=== PATIENT | female | born 1975 | race African-American/Black ===

== ENCOUNTER 2019-11-09 13:15 | Emergency (ER) | payer MEDICAID ==
[~2019-11-09] VITALS: Ht 167.6 cm; Wt 100.0 kg
[2019-11-09] MEDS ORDERED: ACETAMINOPHEN 500 MG TABLET PO ONE (15:15)
[2019-11-09 16:46] VITALS: BP 121/73
== END 2019-11-09 17:03 | disposition home or self-care (01) ==
LOC: EMS 13:18
DX: M79.671 Pain in right foot (principal); M79.672 Pain in left foot; F41.9 Anxiety disorder, unspecified; F17.210 Nicotine dependence, cigarettes, uncomplicated; F12.90 Cannabis use, unspecified, uncomplicated
CPT/HCPCS: 99406

== ENCOUNTER 2022-01-26 21:26 | Emergency (ER) | payer MEDICAID ==
[~2022-01-26] VITALS: Ht 167.6 cm; Wt 96.0 kg
[2022-01-26 22:57] VITALS: BP 107/70
[2022-01-26 23:39] LABS: BASOPHILS % (AUTO) 0.9 % (0.0-2.0); EOSINOPHILS % (AUTO) 1.5 % (1.0-6.0); HEMATOCRIT 41.5 % (36-46); HEMOGLOBIN 13.3 g/dL (12.0-16.0); LYMPHOCYTES # (AUTO) 2.5 K/uL (1.0-4.8); LYMPHOCYTES % (AUTO) 37.8 % (22.0-44.0); MEAN CORPUSCULAR HEMOGLOBIN 28.5 pg (26.0-34.0); MEAN CORPUSCULAR HGB CONC 32.1 G/dL (31.0-37.0); MEAN CORPUSCULAR VOLUME 89 fL (80-100); MONOCYTES # (AUTO) 0.5 K/uL (0.1-1.0); MONOCYTES % (AUTO) 8.2 % (2.0-9.0); NEUTROPHILS # (AUTO) 3.4 K/uL (1.8-7.7); NEUTROPHILS % (AUTO) 51.6 % (40.0-70.0); PLATELET COUNT (AUTO) 260 K/uL (150-450); RED BLOOD CELL COUNT(AUTO) 4.68 MIL/uL (4.00-5.20); RED CELL DISTRIBUTION WIDTH 13.7 % (11.5-14.5)
[2022-01-26 23:49] LABS: ANION GAP 3 mmol/L (8-16); CARBON DIOXIDE 30 mmol/L (22-29); CHLORIDE 103 mmol/L (98-107); CREATININE 0.83 mg/dL (0.60-1.30); GLUCOSE,RANDOM 103 mg/dL (70-110); POTASSIUM 4.4 mmol/L (3.5-5.1); SODIUM SERUM 136 mmol/L (136-145); UREA NITROGEN, BLOOD 17 mg/dL (7-18)
[2022-01-26 23:55] LABS: ALANINE AMINOTRANSFERASE 21 U/L (12-78); ALBUMIN 3.3 g/dL (3.4-5.0); ALKALINE PHOSPHATASE 60 U/L (46-116); ASPARTATE AMINOTRANSFERASE 16 U/L (15-37); BILIRUBIN,TOTAL 0.2 mg/dL (0.1-1.0); TOTAL PROTEIN, SERUM 6.9 g/dL (6.4-8.2)
[2022-01-26 23:56] LABS: GLOMERULAR FILTR. RATE CALC > 60 mL/min (>60)
[2022-01-27 00:32] LABS: HCG,QUANTITATIVE 1 mIU/mL (0-6)
[2022-01-27] MEDS ORDERED: POLY17PO PO (01:03)
== END 2022-01-27 01:31 | disposition home or self-care (01) ==
LOC: EMS 21:28
DX: K59.00 Constipation, unspecified (principal); R35.0 Frequency of micturition; R30.0 Dysuria; R44.1 Visual hallucinations; R44.0 Auditory hallucinations
CPT/HCPCS: 99284; 80053; 84702; 85025; 36415; 74022; G0480

== ENCOUNTER 2022-01-27 02:50 | Inpatient (IN) | payer MEDICAID ==
[~2022-01-27] VITALS: Ht 157.5 cm; Wt 91.2 kg
[~2022-01-27 02:50] MED LIST: POLY17PO PO
[2022-01-27] MEDS ORDERED: HALOPERIDOL 5 MG TABLET PO PRN (05:15)
[2022-01-27] MEDS ORDERED: LORazepam 2 MG TABLET PO PRN (05:15)
[2022-01-27] MEDS ORDERED: ZOLPIDEM TARTRATE 10 MG TABLET PO PRN (05:15)
[2022-01-27 06:09] LABS: COVID AG,FIA SOURCE NASAL SWAB
[2022-01-27 09:02] LABS: APPEARANCE,URINE CLEAR (CLEAR); BILIRUBIN,URINE NEGATIVE (NEGATIVE); GLUCOSE, URINE (UA) NEGATIVE (NEGATIVE); KETONES,URINE NEGATIVE (NEGATIVE); LEUKOCYTE ESTERASE ,URINE MODERATE (NEGATIVE); NITRATE,URINE NEGATIVE (NEGATIVE); OCCULT BLOOD,URINE NEGATIVE (NEGATIVE); PH,URINE 7.5 (5.0-8.0); PROTEIN,URINE NEGATIVE (NEGATIVE); SPECIFIC GRAVITIY, URINE 1.015 (1.003-1.030); UROBILINOGEN,URINE <=1.0 mg/dL (<=1.0)
[2022-01-27 09:08] LABS: AMPHET/METH SCREEN,URINE POSITIVE (NEGATIVE); BARBITURATE SCREEN, URINE NEGATIVE (NEGATIVE); BENZODIAZEPINES SCREEN,URINE NEGATIVE (NEGATIVE); CANNABINOID SCREEN,URINE POSITIVE (NEGATIVE); COCAINE SCREEN,URINE NEGATIVE (NEGATIVE); METHADONE SCREEN, URINE NEGATIVE (NEGATIVE); OPIATE SCREEN,URINE NEGATIVE (NEGATIVE)
[2022-01-27 09:09] LABS: PHENCYCLIDINE SCREEN,URINE NEGATIVE (NEGATIVE)
[2022-01-27 09:59] LABS: BACTERIA,URINE None Seen /HPF (None Seen); RBC,URINE None Seen /HPF (0-2); SQUAMOUS EPITHELIAL CELL,UR Few /LPF (None Seen)
[2022-01-27 12:09] VITALS: BP 115/78
[2022-01-27 20:15] VITALS: BP 113/60
[2022-01-28] MEDS ORDERED: MAG HYDROX/AL HYDROX/SIMETH ES 30 ML SUSPENSION UDCUP PO PRN (07:45)
[2022-01-28] MEDS ORDERED: ONDANSETRON HCL 4 MG TABLET PO PRN (07:45)
[2022-01-28] MEDS ORDERED: LOPERAMIDE HCL 2 MG CAPSULE PO PRN (07:45)
[2022-01-28] MEDS ORDERED: DOCUSATE SODIUM 100 MG CAPSULE PO PRN (07:45)
[2022-01-28] MEDS ORDERED: NICOTINE 14 MG/24 HOUR PATCH TD PRN (07:45)
[2022-01-28] MEDS ORDERED: MAGNESIUM HYDROXIDE SUSPENSION 30 ML UDCUP PO PRN (07:45)
[2022-01-28] MEDS ORDERED: ACETAMINOPHEN 325 MG TABLET PO PRN (07:45)
[2022-01-28] MEDS ORDERED: PETROLATUM,WHITE 28 GM JELLY TP PRN (07:45)
[2022-01-28] MEDS ORDERED: CloNIDine HCL 0.1 MG TABLET PO PRN (07:45)
[2022-01-28] MEDS ORDERED: IBUPROFEN 400 MG TABLET PO PRN (07:45)
[2022-01-28] MEDS ORDERED: ALBUTEROL SULFATE HFA 90 MCG/PUFF 8 GM INHALER IH PRN (07:45)
[2022-01-28] MEDS ORDERED: GuaiFENesin/D-METHORPHAN [SUGAR-FREE] 200-20MG/10 ML SYRUP UDCUP PO PRN (07:45)
[2022-01-28] MEDS: ARIPiprazole 10 MG TABLET PO SCH (08:05)
[2022-01-28 09:47] VITALS: BP 110/68
[2022-01-28 20:09] VITALS: BP 118/68
[2022-01-29] MEDS: ARIPiprazole 10 MG TABLET PO SCH (08:35)
[2022-01-29 10:16] VITALS: BP 118/70
[2022-01-29 18:28] VITALS: BP 120/72
[2022-01-30 05:20] VITALS: BP 118/70
[2022-01-30 08:28] VITALS: BP 118/71
[2022-01-30] MEDS: ARIPiprazole 10 MG TABLET PO SCH (08:58)
[2022-01-31 06:37] VITALS: BP 114/81
[2022-01-31] MEDS: ARIPiprazole 10 MG TABLET PO SCH (08:25)
[2022-01-31 08:38] VITALS: BP 124/80
[2022-01-31] MEDS ORDERED: ARIP10TA38 PO ×2 (12:49→13:05)
== END 2022-01-31 19:17 | disposition home or self-care (01) | DRG 750 ==
LOC: EMS 02:50 → B3A 07:26
PROVIDERS: ADMIT Psychiatry & Neurology Psychiatry; ATTEND Psychiatry & Neurology Psychiatry
DX: F20.0 Paranoid schizophrenia (principal); R45.851 Suicidal ideations; K59.00 Constipation, unspecified; N39.0 Urinary tract infection, site not specified; E66.9 Obesity, unspecified; F41.9 Anxiety disorder, unspecified; F12.10 Cannabis abuse, uncomplicated; Z20.822 Contact with and (suspected) exposure to COVID-19; F15.10 Other stimulant abuse, uncomplicated; Z59.00 Homelessness unspecified; Z87.891 Personal history of nicotine dependence; Z90.710 Acquired absence of both cervix and uterus; Z68.36 Body mass index [BMI] 36.0-36.9, adult
CPT/HCPCS: 81001; 87086; 99285